=== PATIENT | female | born 1965 | race Caucasian/White ===

== ENCOUNTER 2016-04-06 14:29 | Emergency (ER) | payer SELFPAY ==
[~2016-04-06] VITALS: Ht 162.5 cm; Wt 59.0 kg
[~2016-04-06 14:29] MED LIST: ACULAR 3 ML3 M1 OP; AMOXICILLIN500 MG PO; BACTRIM DS 8001 TA1 PO; BACTROBAN OINT22 GM PO; CYCLOBENZAPRINE10 MG PO; CYCLOBENZAPRINE5 M3 PO; FLEXERIL10 MG PO; FLEXERIL5 MG PO; HYDROCODONE BIT1 T11 PO; IBU-8800 MG PO; KEFLEX500 MG PO; MEDROL DOSEPAK4 MG PO; MOTRIN600 MG PO; MOTRIN800 MG PO; Motrin,Rufen800 MG PO; NAPROSYN500 MG PO; NKHM; NORCO 10-325 T1 EACH PO; NORCO 325 MG-51 TAB PO; NORCO 5-325 TA1 EACH PO; ROBAXIN500 MG PO; TRAMADOL HCL50 MG PO; ULTRAM50 MG PO; VICODIN 5/500 505 MG PO; VOLTAREN50 M1 PO; ZITHROMAX Z PA250 MG PO
[2016-04-06 15:19] VITALS: BP 141/93
[2016-04-06] MEDS ORDERED: Peridex 473 ML473 ML PO (15:34)
[2016-04-06] MEDS ORDERED: Motrin,Rufen800 MG PO (15:34)
[2016-04-06] MEDS ORDERED: AUGMENTIN 875875 MG PO (15:34)
== END 2016-04-06 15:37 | disposition home or self-care (01) ==
LOC: ED 14:29
DX: K08.89 Other specified disorders of teeth and supporting structures (principal); F17.200 Nicotine dependence, unspecified, uncomplicated

== ENCOUNTER 2016-09-05 09:56 | Emergency (ER) | payer SELFPAY ==
[~2016-09-05 09:56] MED LIST changes: +AUGMENTIN 875875 MG PO; +Peridex 473 ML473 ML PO
[2016-09-05 10:00] VITALS: BP 125/80
[2016-09-05] MEDS ORDERED: NAPROSYN500 MG PO (11:35)
== END 2016-09-05 13:34 | disposition home or self-care (01) ==
LOC: ED 09:56
DX: S93.402A Sprain of unspecified ligament of left ankle, initial encounter (principal); F17.200 Nicotine dependence, unspecified, uncomplicated; Z98.51 Tubal ligation status; W22.8XXA Striking against or struck by other objects, initial encounter; Y93.89 Activity, other specified; Y92.89 Other specified places as the place of occurrence of the external cause; Y99.9 Unspecified external cause status

== ENCOUNTER 2016-10-05 11:39 | Emergency (ER) | payer SELFPAY ==
[~2016-10-05] VITALS: Ht 162.5 cm; Wt 59.0 kg
[2016-10-05 11:43] VITALS: BP 147/96
[2016-10-05] MEDS ORDERED: PENICILLIN-VK500 MG PO (12:17)
[2016-10-05] MEDS ORDERED: LIDOCAINE VISC100 ML MM (12:17)
== END 2016-10-05 12:30 | disposition home or self-care (01) ==
LOC: ED 11:39
DX: K08.89 Other specified disorders of teeth and supporting structures (principal); F17.200 Nicotine dependence, unspecified, uncomplicated

== ENCOUNTER 2017-03-18 16:40 | Emergency (ER) | payer SELFPAY ==
[~2017-03-18] VITALS: Wt 61.2 kg
[~2017-03-18 16:40] MED LIST changes: +LIDOCAINE VISC100 ML MM; +PENICILLIN-VK500 MG PO
[2017-03-18 16:48] VITALS: BP 153/92
[2017-03-18] MEDS ORDERED: ANAPROX DS550 MG PO (18:13)
[2017-03-18] MEDS ORDERED: ROBAXIN500 M1 PO (18:13)
== END 2017-03-18 18:25 | disposition home or self-care (01) ==
LOC: ED 16:40
DX: S16.1XXA Strain of muscle, fascia and tendon at neck level, initial encounter (principal); M25.511 Pain in right shoulder; F17.200 Nicotine dependence, unspecified, uncomplicated; F10.10 Alcohol abuse, uncomplicated; V89.2XXA Person injured in unspecified motor-vehicle accident, traffic, initial encounter; Y93.89 Activity, other specified; Y92.89 Other specified places as the place of occurrence of the external cause; Y99.8 Other external cause status

== ENCOUNTER 2017-08-26 14:36 | Emergency (ER) | payer SELFPAY ==
[~2017-08-26] VITALS: Ht 162.5 cm; Wt 59.0 kg
[2017-08-26 14:36] VITALS: BP 106/66
[~2017-08-26 14:36] MED LIST changes: +ANAPROX DS550 MG PO; +ROBAXIN500 M1 PO
[2017-08-26 16:47] LABS: BILIRUBIN NEGATIVE (NEGATIVE); BLOOD NEGATIVE (NEGATIVE); CLARITY CLEAR (CLEAR); COLOR YELLOW (YELLOW); GLUCOSE NEGATIVE (NEGATIVE); KETONE NEGATIVE (NEGATIVE); LEUKO ESTERASE 1+ (NEGATIVE); NITRITE NEGATIVE (NEGATIVE); PH 6.5 (5.0-9.0); SPECIFIC GRAVITY <= 1.005 (1.005-1.030); UROBILINOGEN 0.2 E.U./dl (0.2-1.0)
[2017-08-26 16:54] LABS: BACTERIA 1+
[2017-08-26] MEDS ORDERED: Motrin,Rufen800 MG PO (17:36)
[2017-08-26] MEDS ORDERED: CYCLOBENZAPRINE5 M3 PO (17:36)
== END 2017-08-26 17:41 | disposition home or self-care (01) ==
LOC: ED 14:36
PROVIDERS: Physician Assistant
DX: S20.221A Contusion of right back wall of thorax, initial encounter (principal); S50.11XA Contusion of right forearm, initial encounter; A59.9 Trichomoniasis, unspecified; W10.9XXA Fall (on) (from) unspecified stairs and steps, initial encounter; Y93.89 Activity, other specified; Y92.89 Other specified places as the place of occurrence of the external cause; Y99.8 Other external cause status

== ENCOUNTER 2019-03-19 20:34 | Emergency (ER) | payer OTHER ==
[~2019-03-19] VITALS: Ht 162.5 cm; Wt 59.0 kg
[2019-03-19 20:35] VITALS: BP 158/89
[2019-03-19] MEDS ORDERED: ANAPROX DS550 MG PO (22:16)
== END 2019-03-19 22:17 | disposition home or self-care (01) ==
LOC: ED 20:34
DX: M79.641 Pain in right hand (principal); M79.644 Pain in right finger(s); F17.200 Nicotine dependence, unspecified, uncomplicated; X50.0XXA Overexertion from strenuous movement or load, initial encounter; Y93.89 Activity, other specified; Y92.69 Other specified industrial and construction area as the place of occurrence of the external cause; Y99.8 Other external cause status

== ENCOUNTER 2019-10-11 11:13 | Emergency (ER) | payer OTHER ==
[~2019-10-11] VITALS: Ht 162.5 cm; Wt 59.0 kg
[2019-10-11 11:20] VITALS: BP 133/79
[2019-10-11] MEDS ORDERED: IBU800 MG PO (13:01)
[2019-10-11] MEDS ORDERED: NORCO 5-325 TA1 EACH PO (13:01)
== END 2019-10-11 13:07 | disposition home or self-care (01) ==
LOC: ED 11:13
DX: S62.646A Nondisplaced fracture of proximal phalanx of right little finger, initial encounter for closed fracture (principal); W01.198A Fall on same level from slipping, tripping and stumbling with subsequent striking against other object, initial encounter; Y93.89 Activity, other specified; Y92.89 Other specified places as the place of occurrence of the external cause; Y99.8 Other external cause status

== ENCOUNTER → 2020-02-17 | Outpatient (CLI) | payer OTHER ==
[~2020-02-17] MED LIST changes: +IBU800 MG PO
== END | disposition home or self-care (01) ==
LOC: COVID19 14:00
PROVIDERS: ATTEND Internal Medicine
DX: Z20.828 Contact with and (suspected) exposure to other viral communicable diseases (principal)

== ENCOUNTER → 2020-02-28 | Outpatient (CLI) | payer OTHER | END | disposition home or self-care (01) | LOC: COVID19 14:45 | PROVIDERS: ATTEND Internal Medicine | DX: Z20.828 Contact with and (suspected) exposure to other viral communicable diseases (principal) ==

== ENCOUNTER 2021-10-20 15:00 | Emergency (ER) | payer OTHER ==
[~2021-10-20] VITALS: Wt 63.5 kg
[2021-10-20 15:09] VITALS: BP 166/94
== END 2021-10-20 18:29 | disposition home or self-care (01) ==
LOC: ED 15:00
DX: S93.402A Sprain of unspecified ligament of left ankle, initial encounter (principal); Z87.891 Personal history of nicotine dependence; W17.2XXA Fall into hole, initial encounter; Y93.89 Activity, other specified; Y92.89 Other specified places as the place of occurrence of the external cause; Y99.8 Other external cause status

== ENCOUNTER 2021-10-27 22:49 | Emergency (ER) | payer OTHER ==
[2021-10-27 22:59] VITALS: BP 150/78
[2021-10-28] MEDS ORDERED: NAPROXEN250 MG PO (00:19)
== END 2021-10-28 00:22 | disposition home or self-care (01) ==
LOC: ED 22:49
DX: S93.402A Sprain of unspecified ligament of left ankle, initial encounter (principal); S93.602A Unspecified sprain of left foot, initial encounter; Z98.51 Tubal ligation status; W17.2XXA Fall into hole, initial encounter; Y93.89 Activity, other specified; Y92.89 Other specified places as the place of occurrence of the external cause; Y99.8 Other external cause status

== ENCOUNTER 2022-02-22 10:50 | Emergency (ER) | payer OTHER ==
[~2022-02-22] VITALS: Ht 160 cm; Wt 61.2 kg
[~2022-02-22 10:50] MED LIST changes: +NAPROXEN250 MG PO
[2022-02-22 10:56] VITALS: BP 138/82
[2022-02-22 12:00] LABS: BASO # 0.1 10*3/uL (0.0-0.1); BASO % 1.5 % (0.0-1.0); EOS # 0.1 10*3/uL (0.0-0.4); EOS % 1.7 % (1.0-4.0); HEMATOCRIT 49.3 % (37.0-47.0); LYMPH # 1.9 10*3/uL (1.3-4.4); LYMPH % 34.4 % (27.0-41.0); MEAN CELL VOLUME 94.4 fl (81.0-99.0); MEAN CORPUSCULAR HGB 30.3 pg (27.0-31.0); MEAN PLATELET VOLUME 10.5 fl (9.6-12.3); MONO # 0.8 10*3/uL (0.1-1.0); NEUT # 2.6 10*3/uL (2.3-7.9); NEUT % 47.2 % (47.0-73.0); PLATELET COUNT AUTOMATED 274 10*3/uL (130-400); RED BLOOD COUNT 5.22 10*6/uL (4.10-5.10); RED CELL DISTRI WIDTH 12.8 % (0-14.5); WHITE BLOOD COUNT 5.4 10*3/uL (4.8-10.8)
[2022-02-22 12:18] LABS: ALKALINE PHOSPHATASE 108 U/L (45-117); BUN 8 mg/dl (7-24); CHLORIDE 106 mmol/L (98-107); POTASSIUM 3.5 mmol/L (3.5-5.1); SGPT/ALT 18 U/L (12-78); SODIUM 138 mmol/L (136-145); TOTAL PROTEIN 7.4 gm/dL (6.4-8.2)
== END 2022-02-22 12:45 | disposition home or self-care (01) ==
LOC: ED 10:50
PROVIDERS: Nurse Practitioner Family
DX: B34.9 Viral infection, unspecified (principal); Z20.822 Contact with and (suspected) exposure to COVID-19; J43.9 Emphysema, unspecified; Z98.51 Tubal ligation status

== ENCOUNTER 2022-06-09 12:07 | Emergency (ER) | payer OTHER ==
[~2022-06-09] VITALS: Ht 162.5 cm; Wt 63.5 kg
[2022-06-09 12:22] VITALS: BP 132/70
== END 2022-06-09 13:05 | disposition home or self-care (01) ==
LOC: ED 12:07
DX: S93.402A Sprain of unspecified ligament of left ankle, initial encounter (principal); Z98.51 Tubal ligation status; X50.1XXA Overexertion from prolonged static or awkward postures, initial encounter; Y93.89 Activity, other specified; Y92.89 Other specified places as the place of occurrence of the external cause; Y99.8 Other external cause status

== ENCOUNTER 2024-02-17 15:50 | Emergency (ER) | payer OTHER ==
[~2024-02-17] VITALS: Ht 162.5 cm; Wt 63.5 kg
[2024-02-17 15:59] VITALS: BP 155/88
[2024-02-17] MEDS ORDERED: PREDNISONE50 MG PO (17:04)
[2024-02-17] MEDS ORDERED: AMOX-CLAV 875-1 EACH PO (17:04)
== END 2024-02-17 17:24 | disposition home or self-care (01) ==
LOC: ED 15:50
DX: J32.9 Chronic sinusitis, unspecified (principal); F17.290 Nicotine dependence, other tobacco product, uncomplicated; Z98.890 Other specified postprocedural states

== ENCOUNTER 2024-02-21 15:55 | Emergency (ER) | payer OTHER ==
[~2024-02-21] VITALS: Ht 162.5 cm; Wt 63.5 kg
[~2024-02-21 15:55] MED LIST changes: +AMOX-CLAV 875-1 EACH PO; +PREDNISONE50 MG PO
[2024-02-21 16:02] VITALS: BP 138/80
[2024-02-21] MEDS ORDERED: NAPROSYN500 MG PO (16:45)
[2024-02-21] MEDS ORDERED: Acetaminophen/Hydrocodone 5 MG/325 MG TABLET PO ONE (16:45)
== END 2024-02-21 16:54 | disposition home or self-care (01) ==
LOC: ED 15:55
DX: S60.221A Contusion of right hand, initial encounter (principal); J44.9 Chronic obstructive pulmonary disease, unspecified; F17.200 Nicotine dependence, unspecified, uncomplicated; Z79.899 Other long term (current) drug therapy; W18.09XA Striking against other object with subsequent fall, initial encounter; Y93.89 Activity, other specified; Y92.89 Other specified places as the place of occurrence of the external cause; Y99.8 Other external cause status

== ENCOUNTER 2024-04-09 19:36 | Emergency (ER) | payer OTHER ==
[~2024-04-09] VITALS: Ht 162.5 cm; Wt 63.5 kg
[2024-04-09 19:56] VITALS: BP 132/90
[2024-04-09] MEDS ORDERED: methylPREDNISolone sod succ 125 MG VIAL IM ONE (20:25)
[2024-04-09] MEDS ORDERED: PREDNISONE20 M1 PO (20:27)
[2024-04-09] MEDS ORDERED: predniSONE 20 MG TAB PO ONE (20:50)
== END 2024-04-09 20:40 | disposition home or self-care (01) ==
LOC: ED 19:36
DX: M19.072 Primary osteoarthritis, left ankle and foot (principal); Z98.890 Other specified postprocedural states

== ENCOUNTER 2024-10-29 14:03 | Inpatient (IN) | payer OTHER ==
[~2024-10-29] VITALS: Ht 157.4 cm; Wt 49.0 kg
[~2024-10-29 14:03] MED LIST changes: +CIPRO500 MG PO; +PREDNISONE20 M1 PO
[2024-10-29 14:12] VITALS: BP 203/97
[2024-10-29] MEDS ORDERED: SODIUM CHLORIDE 0.9% 1,000 ML IV ONE ×2 (14:20→15:55)
[2024-10-29] MEDS ORDERED: diphenhydrAMINE hydrochloride 50 MG/ML VIAL IV ONE (14:20)
[2024-10-29] MEDS ORDERED: Metoclopramide Hydrochloride 10 MG/2 ML VIAL IV ONE (14:20)
[2024-10-29 14:37] LABS: BASO # 0.1 10*3/uL (0.0-0.1); BASO % 0.3 % (0.0-1.0); EOS # 0.0 10*3/uL (0.0-0.4); EOS % 0.0 % (1.0-4.0); MEAN CELL VOLUME 93.3 fl (81.0-99.0); MEAN CORPUSCULAR HGB 30.2 pg (27.0-31.0); MEAN PLATELET VOLUME 9.5 fl (9.6-12.3); MONO # 0.7 10*3/uL (0.1-1.0); MONO % 3.5 % (3.0-9.0); NEUT # 16.4 10*3/uL (2.3-7.9); NEUT % 88.0 % (47.0-73.0); NUCLEATED RED BLOOD CELL 0.0 % (0.0-0.0); NUCLEATED RED BLOOD CELL 0.0 10*3/uL (0.0-0.0); PLATELET COUNT AUTOMATED 487 10*3/uL (130-400); RED CELL DISTRI WIDTH 14.3 % (0-14.5)
[2024-10-29 15:18] LABS: BUN 36.0 mg/dl (9-23)
[2024-10-29] MEDS ORDERED: ACETAMINOPHEN 650 MG SUPP R PRN (15:50)
[2024-10-29] MEDS ORDERED: BISACODYL 10 MG SUPP R PRN (15:50)
[2024-10-29] MEDS ORDERED: BISACODYL 5 MG TAB PO PRN (15:50)
[2024-10-29] MEDS ORDERED: Acetaminophen/Hydrocodone 5 MG/325 MG TABLET PO PRN (15:50)
[2024-10-29] MEDS ORDERED: Ondansetron Hydrochloride 4 MG/2 ML VIAL IV PRN (15:50)
[2024-10-29] MEDS ORDERED: ACETAMINOPHEN 325 MG TAB PO PRN (15:50)
[2024-10-29] MEDS ORDERED: Meropenem 500 MG IV SCH (15:55)
[2024-10-29 15:57] VITALS: BP 189/97
[2024-10-29] MEDS ORDERED: hydrALAZINE hydrochloride 20 MG/ML VIAL IV ONE ×2 (16:00→20:25)
[2024-10-29] MEDS ORDERED: SODIUM CHLORIDE 0.9% 1,000 ML IV SCH (16:10)
[2024-10-29] MEDS ORDERED: LORazepam 1 MG TAB PO PRN (16:15)
[2024-10-29 17:00] VITALS: BP 182/92
[2024-10-29 17:01] VITALS: BP 170/70
[2024-10-29] MEDS ORDERED: Metoclopramide Hydrochloride 10 MG/2 ML VIAL IV PRN (17:20)
[2024-10-29 17:27] LABS: BILIRUBIN Negative (Negative); BLOOD 2+ (Negative); CLARITY Clear (Clear); COLOR Yellow (Yellow); KETONE Negative (Negative); LEUKO ESTERASE 2+ (Negative); NITRITE Negative (Negative); SPECIFIC GRAVITY 1.010 (1.001-1.030); UROBILINOGEN 0.2 E.U./dl (0.0-1.0)
[2024-10-29 17:28] LABS: PH 8.5 (4.5-8.0)
[2024-10-29 17:34] LABS: URINE AMPHETAMINES Negative (1000ng/ml); URINE BARBITURATES Negative (200ng/ml); URINE BENZODIAZEPINES Negative (200ng/ml); URINE CANNABINOIDS (THC) Negative (50ng/ml); URINE COCAINE Positive (300ng/ml); URINE METHADONE Negative (300ng/ml); URINE OPIATES Positive (300ng/ml); URINE PHENCYCLIDINE Negative (25ng/ml)
[2024-10-29 17:42] LABS: BACTERIA 1+; RBC 21-30 rbc/hpf (0-2); WBC TNTC wbc/hpf (0-5)
[2024-10-29 20:00] VITALS: BP 199/92
[2024-10-30] VITALS: BP 168/69
[2024-10-30 06:01] LABS: BUN 27 mg/dl (9-23); FREE T4 1.08 ng/dl (0.89-1.76); LDL CHOLESTEROL 80 mg/dL (9-159)
[2024-10-30 06:16] LABS: SGPT/ALT < 7 U/L (5-49)
[2024-10-30 06:26] LABS: BASO # 0.1 10*3/uL (0.0-0.1); BASO % 0.5 % (0.0-1.0); EOS # 0.0 10*3/uL (0.0-0.4); EOS % 0.1 % (1.0-4.0); MEAN CELL VOLUME 93.1 fl (81.0-99.0); MEAN CORPUSCULAR HGB 29.8 pg (27.0-31.0); MEAN PLATELET VOLUME 9.5 fl (9.6-12.3); MONO # 1.1 10*3/uL (0.1-1.0); MONO % 5.4 % (3.0-9.0); NEUT # 17.3 10*3/uL (2.3-7.9); NEUT % 85.4 % (47.0-73.0); NUCLEATED RED BLOOD CELL 0.0 % (0.0-0.0); NUCLEATED RED BLOOD CELL 0.0 10*3/uL (0.0-0.0); PLATELET COUNT AUTOMATED 488 10*3/uL (130-400); RED CELL DISTRI WIDTH 14.7 % (0-14.5)
[2024-10-30 06:42] LABS: VITAMIN D, 25-HYDROXY 23.7 ng/mL (30-100)
[2024-10-30] MEDS ORDERED: POTASSIUM CHLORIDE 20 MEQ TAB PO ONE (07:50)
[2024-10-30 08:00] VITALS: BP 179/90
[2024-10-30] MEDS ORDERED: Cholecalciferol 2,000 UNIT TABLET (50 MCG) PO SCH (10:00)
[2024-10-30 12:00] VITALS: BP 146/60
[2024-10-30] MEDS ORDERED: SODIUM CHLORIDE 0.9% 1,000 ML IV ONE (13:00)
[2024-10-30 16:00] VITALS: BP 171/80
[2024-10-30 20:00] VITALS: BP 133/49
[2024-10-31] VITALS: BP 176/86
[2024-10-31 06:18] LABS: BASO # 0.1 10*3/uL (0.0-0.1); BASO % 0.5 % (0.0-1.0); EOS # 0.1 10*3/uL (0.0-0.4); EOS % 0.6 % (1.0-4.0); MEAN CELL VOLUME 94.8 fl (81.0-99.0); MEAN CORPUSCULAR HGB 30.2 pg (27.0-31.0); MEAN PLATELET VOLUME 9.7 fl (9.6-12.3); MONO # 1.1 10*3/uL (0.1-1.0); MONO % 6.3 % (3.0-9.0); NEUT # 13.7 10*3/uL (2.3-7.9); NEUT % 79.3 % (47.0-73.0); NUCLEATED RED BLOOD CELL 0.0 % (0.0-0.0); NUCLEATED RED BLOOD CELL 0.0 10*3/uL (0.0-0.0); PLATELET COUNT AUTOMATED 497 10*3/uL (130-400); RED CELL DISTRI WIDTH 14.4 % (0-14.5)
[2024-10-31 06:24] LABS: BUN 21.0 mg/dl (9-23)
[2024-10-31 08:00] VITALS: BP 152/65
[2024-10-31] MEDS ORDERED: SODIUM CHLORIDE 0.9% 1,000 ML IV ONE (09:45)
[2024-10-31 12:00] VITALS: BP 130/78
[2024-10-31 16:00] VITALS: BP 116/67
[2024-10-31 20:00] VITALS: BP 130/69
[2024-11-01] VITALS: BP 131/72
[2024-11-01 06:21] LABS: BUN 20.0 mg/dl (9-23)
[2024-11-01 06:22] LABS: BASO # 0.1 10*3/uL (0.0-0.1); BASO % 0.7 % (0.0-1.0); EOS # 0.1 10*3/uL (0.0-0.4); EOS % 0.7 % (1.0-4.0); MEAN CELL VOLUME 95.5 fl (81.0-99.0); MEAN CORPUSCULAR HGB 30.2 pg (27.0-31.0); MEAN PLATELET VOLUME 9.8 fl (9.6-12.3); MONO # 1.2 10*3/uL (0.1-1.0); MONO % 6.9 % (3.0-9.0); NEUT # 13.8 10*3/uL (2.3-7.9); NEUT % 78.5 % (47.0-73.0); NUCLEATED RED BLOOD CELL 0.0 % (0.0-0.0); NUCLEATED RED BLOOD CELL 0.0 10*3/uL (0.0-0.0); PLATELET COUNT AUTOMATED 466 10*3/uL (130-400); RED CELL DISTRI WIDTH 14.1 % (0-14.5)
[2024-11-01 08:00] VITALS: BP 151/78
[2024-11-01] MEDS ORDERED: VITAMIN D350 MCG PO (11:18)
[2024-11-01] MEDS ORDERED: AMLODIPINE BESY10 MG PO (11:18)
== END 2024-11-01 11:36 | disposition home or self-care (01) | DRG 720 ==
LOC: ED 14:03 → EDHOLD 15:29 → 4E 15:29 → EDHOLD 16:00 → 4E 16:27
PROVIDERS: Emergency Medicine; Student in an Organized Health Care Education/Training Program; ADMIT Internal Medicine; ATTEND Internal Medicine
DX: A41.51 Sepsis due to Escherichia coli [E. coli] (principal); N17.0 Acute kidney failure with tubular necrosis; I16.1 Hypertensive emergency; E43 Unspecified severe protein-calorie malnutrition; N39.0 Urinary tract infection, site not specified; Z16.12 Extended spectrum beta lactamase (ESBL) resistance; J44.9 Chronic obstructive pulmonary disease, unspecified; J43.9 Emphysema, unspecified; R65.20 Severe sepsis without septic shock; F17.210 Nicotine dependence, cigarettes, uncomplicated; E87.6 Hypokalemia; R73.9 Hyperglycemia, unspecified; D75.839 Thrombocytosis, unspecified; F14.90 Cocaine use, unspecified, uncomplicated; F12.90 Cannabis use, unspecified, uncomplicated; Z68.1 Body mass index [BMI] 19.9 or less, adult

== ENCOUNTER 2024-11-21 11:26 | Emergency (ER) | payer OTHER ==
[~2024-11-21] VITALS: Ht 162.5 cm; Wt 59.0 kg
[~2024-11-21 11:26] MED LIST changes: +AMLODIPINE BESY10 MG PO; +VITAMIN D350 MCG PO
[2024-11-21 11:35] VITALS: BP 150/82
[2024-11-21] MEDS ORDERED: MEDROL DOSEPAK4 MG PO (12:17)
== END 2024-11-21 12:24 | disposition home or self-care (01) ==
LOC: ED 11:26
DX: S63.601A Unspecified sprain of right thumb, initial encounter (principal); F17.210 Nicotine dependence, cigarettes, uncomplicated; F14.90 Cocaine use, unspecified, uncomplicated; F12.90 Cannabis use, unspecified, uncomplicated; W01.0XXA Fall on same level from slipping, tripping and stumbling without subsequent striking against object, initial encounter; Y93.89 Activity, other specified; Y92.89 Other specified places as the place of occurrence of the external cause; Y99.8 Other external cause status

== ENCOUNTER 2025-02-02 16:36 | Emergency (ER) | payer OTHER ==
[~2025-02-02] VITALS: Wt 59.0 kg
[2025-02-02] MEDS ORDERED: METHOCARBAMOL 750 MG TAB PO ONE (17:15)
[2025-02-02] MEDS ORDERED: Acetaminophen/Hydrocodone 5 MG/325 MG TABLET PO ONE (17:15)
[2025-02-02 17:34] VITALS: BP 138/95
[2025-02-02] MEDS ORDERED: MELOXICAM15 MG PO (18:16)
[2025-02-02] MEDS ORDERED: MEDROL DOSEPAK4 MG PO (18:16)
[2025-02-02] MEDS ORDERED: METHOCARBAMOL750 M1 PO (18:16)
[2025-02-02] MEDS ORDERED: predniSONE 20 MG TAB PO ONE (18:20)
== END 2025-02-02 18:30 | disposition home or self-care (01) ==
LOC: ED 16:36
DX: S46.912A Strain of unspecified muscle, fascia and tendon at shoulder and upper arm level, left arm, initial encounter (principal); S16.1XXA Strain of muscle, fascia and tendon at neck level, initial encounter; M62.838 Other muscle spasm; F17.210 Nicotine dependence, cigarettes, uncomplicated; Z79.899 Other long term (current) drug therapy; W50.0XXA Accidental hit or strike by another person, initial encounter; Y93.72 Activity, wrestling; Y92.89 Other specified places as the place of occurrence of the external cause; Y99.8 Other external cause status

== ENCOUNTER 2025-03-04 14:06 | Inpatient (IN) | payer OTHER ==
[~2025-03-04] VITALS: Ht 160 cm; Wt 49.9 kg
[~2025-03-04 14:06] MED LIST changes: +MELOXICAM15 MG PO; +METHOCARBAMOL750 M1 PO
[2025-03-04 14:14] VITALS: BP 150/82
[2025-03-04] MEDS ORDERED: SODIUM CHLORIDE 0.9% 500 ML IV ONE (14:35)
[2025-03-04] MEDS ORDERED: Albuterol Sulf/Ipratropium 3 ML VIAL NEB ONE (14:35)
[2025-03-04] MEDS ORDERED: Dexamethasone Sodium Phospha 20 MG/5 ML VIAL IV ONE (14:35)
[2025-03-04 14:57] LABS: BASO # 0.0 10*3/uL (0.0-0.1); BASO % 0.3 % (0.0-1.0); EOS # 0.0 10*3/uL (0.0-0.4); EOS % 0.3 % (1.0-4.0); MEAN CELL VOLUME 92.2 fl (81.0-99.0); MEAN CORPUSCULAR HGB 30.5 pg (27.0-31.0); MEAN PLATELET VOLUME 9.8 fl (9.6-12.3); MONO # 0.7 10*3/uL (0.1-1.0); MONO % 5.1 % (3.0-9.0); NEUT # 11.2 10*3/uL (2.3-7.9); NEUT % 79.2 % (47.0-73.0); NUCLEATED RED BLOOD CELL 0.0 % (0.0-0.0); NUCLEATED RED BLOOD CELL 0.0 10*3/uL (0.0-0.0); PLATELET COUNT AUTOMATED 318 10*3/uL (130-400); RED CELL DISTRI WIDTH 12.3 % (0-14.5)
[2025-03-04 15:16] LABS: BUN 11 mg/dl (9-23)
[2025-03-04 16:00] VITALS: BP 149/86
[2025-03-04] MEDS ORDERED: AZITHROMYCIN 250 ML IV ONE (16:10)
[2025-03-04] MEDS ORDERED: MELOXICAM15 MG PO (17:12)
[2025-03-04 17:30] VITALS: BP 149/86
[2025-03-04] MEDS ORDERED: SODIUM CHLORIDE 0.9% 1,000 ML IV ONE (17:40)
[2025-03-04] MEDS ORDERED: Albuterol Sulf/Ipratropium 3 ML VIAL NEB SCH (17:45)
[2025-03-04] MEDS ORDERED: ACETAMINOPHEN 325 MG TAB PO PRN (18:20)
[2025-03-04 20:00] VITALS: BP 134/71
[2025-03-04] MEDS ORDERED: GUAIFENESIN 600 MG TAB ER PO SCH (22:00)
[2025-03-05] VITALS: BP 130/71
[2025-03-05 06:36] LABS: BASO # 0.0 10*3/uL (0.0-0.1); BASO % 0.1 % (0.0-1.0); EOS # 0.0 10*3/uL (0.0-0.4); EOS % 0.0 % (1.0-4.0); MEAN CELL VOLUME 94.7 fl (81.0-99.0); MEAN CORPUSCULAR HGB 30.7 pg (27.0-31.0); MEAN PLATELET VOLUME 10.7 fl (9.6-12.3); MONO # 0.2 10*3/uL (0.1-1.0); MONO % 3.4 % (3.0-9.0); NEUT # 5.3 10*3/uL (2.3-7.9); NEUT % 78.7 % (47.0-73.0); NUCLEATED RED BLOOD CELL 0.0 % (0.0-0.0); NUCLEATED RED BLOOD CELL 0.0 10*3/uL (0.0-0.0); PLATELET COUNT AUTOMATED 302 10*3/uL (130-400); RED CELL DISTRI WIDTH 12.4 % (0-14.5)
[2025-03-05 08:00] VITALS: BP 140/81
[2025-03-05 08:14] LABS: BUN 12 mg/dl (9-23); SGPT/ALT 11 U/L (5-49)
[2025-03-05] MEDS ORDERED: Cholecalciferol 2,000 UNIT TABLET (50 MCG) PO SCH (10:00)
[2025-03-05 12:00] VITALS: BP 126/67
[2025-03-05] MEDS ORDERED: AZITHROMYCIN 250 ML IV SCH (15:00)
[2025-03-05] MEDS ORDERED: BUDESONIDE 0.5 MG AMP NEB SCH (15:40)
[2025-03-05 16:00] VITALS: BP 137/75
[2025-03-05 20:00] VITALS: BP 146/85
[2025-03-05] MEDS ORDERED: Fluticasone Propionate/Salmeterol 250/50 diskus INH SCH (22:00)
[2025-03-06] VITALS: BP 150/90
[2025-03-06] MEDS ORDERED: GUAIFENESIN/DEXTROMETHORPHAN 5 ML UDC PO ONE (02:00)
[2025-03-06] MEDS ORDERED: GUAIFENESIN/DEXTROMETHORPHAN 10 ML UDC PO ONE (02:05)
[2025-03-06 06:31] LABS: BASO # 0.0 10*3/uL (0.0-0.1); BASO % 0.2 % (0.0-1.0); EOS # 0.0 10*3/uL (0.0-0.4); EOS % 0.0 % (1.0-4.0); MEAN CELL VOLUME 95.2 fl (81.0-99.0); MEAN CORPUSCULAR HGB 30.7 pg (27.0-31.0); MEAN PLATELET VOLUME 10.0 fl (9.6-12.3); MONO # 0.7 10*3/uL (0.1-1.0); MONO % 5.8 % (3.0-9.0); NEUT # 9.0 10*3/uL (2.3-7.9); NEUT % 73.5 % (47.0-73.0); NUCLEATED RED BLOOD CELL 0.0 % (0.0-0.0); NUCLEATED RED BLOOD CELL 0.0 10*3/uL (0.0-0.0); PLATELET COUNT AUTOMATED 363 10*3/uL (130-400); RED CELL DISTRI WIDTH 12.5 % (0-14.5)
[2025-03-06 07:12] LABS: BUN 16 mg/dl (9-23)
[2025-03-06 08:00] VITALS: BP 159/77
[2025-03-06 12:00] VITALS: BP 154/88
[2025-03-06] MEDS ORDERED: LORazepam 0.5 MG TAB PO PRN (14:55)
[2025-03-06 16:00] VITALS: BP 154/77
[2025-03-06] MEDS ORDERED: Acetaminophen/Hydrocodone 5 MG/325 MG TABLET PO PRN (18:10)
[2025-03-06 20:00] VITALS: BP 140/70
[2025-03-07] VITALS: BP 152/72
[2025-03-07 06:24] LABS: BASO # 0.0 10*3/uL (0.0-0.1); BASO % 0.1 % (0.0-1.0); EOS # 0.0 10*3/uL (0.0-0.4); EOS % 0.0 % (1.0-4.0); MEAN CELL VOLUME 95.9 fl (81.0-99.0); MEAN CORPUSCULAR HGB 29.9 pg (27.0-31.0); MEAN PLATELET VOLUME 9.9 fl (9.6-12.3); MONO # 0.1 10*3/uL (0.1-1.0); MONO % 1.9 % (3.0-9.0); NEUT # 5.5 10*3/uL (2.3-7.9); NEUT % 80.7 % (47.0-73.0); NUCLEATED RED BLOOD CELL 0.0 % (0.0-0.0); NUCLEATED RED BLOOD CELL 0.0 10*3/uL (0.0-0.0); PLATELET COUNT AUTOMATED 406 10*3/uL (130-400); RED CELL DISTRI WIDTH 12.7 % (0-14.5)
[2025-03-07 08:00] VITALS: BP 140/72
[2025-03-07 12:00] VITALS: BP 150/68
[2025-03-07 16:00] VITALS: BP 126/63
[2025-03-07 20:00] VITALS: BP 124/67
[2025-03-08] VITALS: BP 133/60
[2025-03-08 08:00] VITALS: BP 141/72
[2025-03-08] MEDS ORDERED: DILTIAZEM 24HR180 MG PO (11:33)
[2025-03-08] MEDS ORDERED: DOXYCYCLINE HY100 M3 PO (11:33)
[2025-03-08] MEDS ORDERED: PREDNISONE10 MG PO (11:33)
[2025-03-08] MEDS ORDERED: NICODERM CQ1 EAC2 T (11:33)
[2025-03-08] MEDS ORDERED: VENT7GM INH (14:42)
== END 2025-03-08 12:15 | disposition home or self-care (01) | DRG 871 ==
LOC: ED 14:06 → EDHOLD 16:43 → 5E 16:43
PROVIDERS: Emergency Medicine; Internal Medicine; Student in an Organized Health Care Education/Training Program; ADMIT Internal Medicine; ATTEND Internal Medicine
DX: A41.9 Sepsis, unspecified organism (principal); E43 Unspecified severe protein-calorie malnutrition; J69.0 Pneumonitis due to inhalation of food and vomit; J96.01 Acute respiratory failure with hypoxia; J18.9 Pneumonia, unspecified organism; J44.1 Chronic obstructive pulmonary disease with (acute) exacerbation; J44.0 Chronic obstructive pulmonary disease with (acute) lower respiratory infection; Z68.1 Body mass index [BMI] 19.9 or less, adult; R65.20 Severe sepsis without septic shock; F17.210 Nicotine dependence, cigarettes, uncomplicated; I10 Essential (primary) hypertension; Z20.822 Contact with and (suspected) exposure to COVID-19; J20.9 Acute bronchitis, unspecified; Z82.49 Family history of ischemic heart disease and other diseases of the circulatory system; Z79.899 Other long term (current) drug therapy